=== PATIENT | female | born 1995 | race African-American/Black ===

== ENCOUNTER 2016-07-19 06:20 | Emergency (ER) | payer OTHER ==
[~2016-07-19] VITALS: Ht 167.6 cm; Wt 68.0 kg
[2016-07-19] MEDS ORDERED: SENOKOT-S1 TA1 PO (06:56)
[2016-07-19] MEDS ORDERED: NORCO 5-325 TA1 EACH PO (06:56)
[2016-07-19] MEDS ORDERED: LEXAPRO20 MG PO (07:03)
[2016-07-19 08:04] VITALS: BP 116/75
== END 2016-07-19 08:05 | disposition home or self-care (01) ==
LOC: ER 06:20
DX: K64.4 Residual hemorrhoidal skin tags (principal); F10.99 Alcohol use, unspecified with unspecified alcohol-induced disorder